=== PATIENT | male | born 1990 | race Caucasian/White ===

== ENCOUNTER 2021-05-28 13:43 | Emergency (ER) | payer BC, OTHER ==
[2021-05-28 14:43] VITALS: BP 143/77; PULSE 83; TEMP 99.5; BMI 23.0
== END 2021-05-28 15:15 | disposition home or self-care (01) ==
LOC: FER 13:43
DX: R42 Dizziness and giddiness (principal)
CPT/HCPCS: 93005; 99283-25

== ENCOUNTER 2022-06-04 04:38 | Emergency (ER) | payer SELFPAY ==
[2022-06-04 04:54] VITALS: BP 138/85; PULSE 83; RESP 16; TEMP 99; BMI 33.5
[2022-06-04] MEDS ORDERED: predniSONE 20 MG TABLET (UD) PO ONE (04:56)
[2022-06-04] MEDS ORDERED: predniSONE 20 MG TABLET (UD) ONE (04:58)
== END 2022-06-04 05:06 | disposition home or self-care (01) ==
LOC: FER 04:38
DX: R09.89 Other specified symptoms and signs involving the circulatory and respiratory systems (principal)
CPT/HCPCS: 87651; 99283-25